=== PATIENT | male | born 1980 | race Caucasian/White ===

== ENCOUNTER 2020-07-20 20:34 | Emergency (ER) | payer OTHER ==
[~2020-07-20] VITALS: Ht 180.3 cm; Wt 100.0 kg
[2020-07-20 20:58] VITALS: BP 112/71
--- NOTE | 2020-07-20 21:14 | RAD ---
3 views of the right foot dated 07/20/2020. No comparison available. Clinical data indication: Pain after injury. FINDINGS: 3 views the right foot show a transverse fracture at the base of the fifth metatarsal, not significan tly displaced. Osseous structures are otherwise intact. No malalignment. IMPRESSION: Transverse fracture at the base of the fifth metatarsal, not significantly displaced. Electronically signed by: Seb Marquez MD (07/20/2020 9:11 PM) NILSA
--- NOTE | 2020-07-20 21:20 | PHYS DOC ---
Past History Past Medical History: No Pertinent History Past Surgical History: Other Additional Past Surgical Histo: ORAL, SALIVA GLAND SX, LEFT FINGER SX, RIGHT SHOULDER Alcohol Use: None Adult General Chief Complaint Chief Complaint: FOOT INJURY PAIN HPI HPI Patient is an otherwise healthy 39-year-old male who presents with a chief complaint of right foot pain. States he was at the [employer] [place] just before coming to the emergency department, and twisted his foot/ankle. States he is got pain 7 out of 10. States he can walk but it causes him pain. Denies any other injuries. Review of Systems Review of Systems Review of systems otherwise unremarkable except noted in HPI peer Current Medications Current Medications Current Medications Medications (Trade) Dose Ordered Sig/Zeny Start Time Stop Time Status Last Admin Dose Admin Acetaminophen (Tylenol) 1,000 mg 1X ONCE 07/20/20 21:30 07/20/20 21:31 UNV Ibuprofen (Motrin) 600 mg 1X ONCE 07/20/20 21:30 07/20/20 21:31 UNV Allergies Allergies Allergies Coded Allergies Type Severity Reaction Last Updated Verified No Known Drug Allergies 07/20/20 No Physical Exam Physical Exam Constitutional: Well developed, well nourished, no acute distress, non-toxic appearance. [] Skin: Warm, dry, no erythema, no rash. [] Back: No tenderness, Extremities: Neurovascular exam intact, tenderness to palpation, swelling and mild contusion at lateral right foot approximately at the base of fifth metatarsal Neurologic: Alert and oriented X 3, normal motor function, normal sensory function, no focal deficits noted. [] Psychologic: Affect normal, judgement normal, mood normal. [] Current Patient Data Vital Signs Vital Signs Date Time Temp Pulse Resp B/P (MAP) Pulse Ox O2 Delivery O2 Flow Rate FiO2 07/20/20 20:58 97.9 100 16 112/71 (85) 96 Room Air EKG EKG [] Radiology/Procedures Radiology/Procedures []FINDINGS: 3 views the right foot show a transverse fracture at the base of the fifth metatarsal, not significantly displaced. Osseous structures are otherwise intact. No malalignment. IMPRESSION: Transverse fracture at the base of the fifth metatarsal, not significantly displaced. Electronically signed by: Seb Marquez MD (07/20/2020 9:11 PM) [facility] Heart Score Risk Factors: Risk Factors: DM, Current or recent (<one month) smoker, HTN, HLP, family history of CAD, obesity. Risk Scores: Risk Factors: DM, Current or recent (<one month) smoker, HTN, HLP, family history of CAD, obesity. Course & Med Decision Making Course & Med Decision Making Patient is a 39-year-old male who presents with right foot ankle pain Vital signs not concerning. Physical exam noted above. Initially started on Tylenol, ibuprofen and ice. Imaging notable for transverse fracture at the base of the fifth metatarsal with no displacement or angulation noted. Patient placed in a short leg posterior leg splint. Given oral Percocet while in the ED. discussed patient with orthopedic surgery who agreed that the splint, pain control and nonweightbearing is appropriate. Advised to follow-up in their clinic next week for reevaluation. Discussed all findings with patient and family. Advised to call [facility] and gave contact information next week. Advised to come back with new or concerning symptoms. Family grateful, verbalized understanding and agreed with plan of discharge. [] Dragon Disclaimer Dragon Disclaimer This electronic medical record was generated, in whole or in part, using a voice recognition dictation system. Departure Departure: Impression: Primary Impression: Metatarsal bone fracture Disposition: DC HOME SELF CARE/HOMELESS Condition: IMPROVED Patient Instructions: Cast or Splint Care, Crutch Use, Metatarsal Fracture, Und isplaced Additional Instructions: Please read the attached information. Please continue to take ibuprofen and use ice at home for main pain control. Please use your prescription pain medicine as needed. Please call your primary care physician first thing Wednesday to discuss ED visit and set up a follow-up. Please call the orthopedic surgeon at [facility] at [phone] before you call your primary care physician first thing Wednesday to discuss your ED visit and set up a follow-up as soon as possible for repeat imaging, evaluation and ensure you do not need surgery. Please come back to the ED with new or concerning symptoms. Please keep your splint on, and use your crutches at all times. Scripts Oxycodone HCl/Acetaminophen (Percocet 5-325 mg Tablet) 1 Each Tablet 1 TAB PO QID PRN for fracture MDD 2 Tablet(s) for 5 Days, #20 TAB 0 Refills Prov: ROSY EVANS MD 07/20/20 ROSY EVANS MD Jul 20, 2020 21:20
--- NOTE | 2020-07-20 21:23 | RAD ---
Three-view right ankle dated 07/20/2020. COMPARISON: Foot films dated same day. Clinical data indication: Pain after injury. Findings 3 views right ankle show normal bony alignment. No displaced fracture. Talar dome is intact. There is a transverse fracture of the base of the fifth metatarsal, better described on recent foot films. IMPRESSION: 1. Base of fifth metatarsal fracture. Please see dedicated foot films dated same day for further info rmation. 2. Otherwise no acute findings. Electronically signed by: Seb Marquez MD (07/20/2020 9:21 PM) NILSA
[2020-07-20] MEDS ORDERED: ACETAMINOPHEN 500 MG TABLET PO ONE (21:30)
[2020-07-20] MEDS ORDERED: IBUPROFEN 600 MG TABLET. PO ONE (21:30)
[2020-07-20] MEDS ORDERED: oxyCODONE/APAP 5/325 1 TAB TABLET PO ONE (21:45)
[2020-07-20] MEDS ORDERED: OXYC-325 PO (21:59)
== END 2020-07-20 22:35 | disposition home or self-care (01) ==
LOC: ER 20:34
DX: S92.351A Displaced fracture of fifth metatarsal bone, right foot, initial encounter for closed fracture (principal); M79.671 Pain in right foot; R60.0 Localized edema; Z98.890 Other specified postprocedural states; X58.XXXA Exposure to other specified factors, initial encounter; Y93.89 Activity, other specified; Y92.89 Other specified places as the place of occurrence of the external cause; Y99.8 Other external cause status
CPT/HCPCS: 29515; 73610; 73630; 99284

== ENCOUNTER → 2020-08-09 | Outpatient (CLI) | payer OTHER ==
[2020-07-20 20:58] VITALS: BP 112/71
[~2020-08-09] MED LIST: OXYC-325 PO
--- NOTE | 2020-08-09 09:57 | RAD ---
EXAM: Right foot, 3 views. HISTORY: Pain. Fracture follow-up. COMPARISON: 07/20/2020 FINDINGS: 3 views of the left foot are obtained. There has been interval increase in displacement of a fracture at the base of the fifth metatarsal. There has been no interval healing. No new fracture i s seen. There is a corticated ossicle along the anterior talus. IMPRESSION: Slight increased displacement of a fracture at the base of the fifth metatarsal. There ford s been no interval healing. Electronically signed by: Traci Paris MD (08/09/2020 9:55 AM) [id number]
== END ==
LOC: RAD 09:24
PROVIDERS: ATTEND Physician Assistant
DX: S92.351A Displaced fracture of fifth metatarsal bone, right foot, initial encounter for closed fracture (principal); X58.XXXA Exposure to other specified factors, initial encounter; Y93.89 Activity, other specified; Y92.89 Other specified places as the place of occurrence of the external cause; Y99.8 Other external cause status
CPT/HCPCS: 73630

== ENCOUNTER → 2020-10-04 | Outpatient (CLI) | payer OTHER ==
--- NOTE | 2020-10-04 13:38 | RAD ---
EXAM: AP, oblique and lateral views of the right foot DATE: 10/04/2020 8:52 AM INDICATION: FX TO 5TH METATARSAL COMPARISON: 08/10/2019 07/20/2020 FINDINGS: 1. Transverse fracture through the base of the fifth metatarsal with mild sclerosis along the margin , without discrete bony bridging, and approximately 3 mm separation of the principal fragments. 2. Moderate soft tissue swelling overlying the lateral right foot. 3. Midfoot degenerative changes are seen. Electronically signed by: Gregg Duggan MD (10/04/2020 1:36 PM) [id number]
== END ==
LOC: RAD 08:47
PROVIDERS: ATTEND Physician Assistant
DX: M19.071 Primary osteoarthritis, right ankle and foot (principal); M79.89 Other specified soft tissue disorders
CPT/HCPCS: 73630

== ENCOUNTER → 2020-12-03 | Outpatient (CLI) | payer OTHER ==
--- NOTE | 2020-12-03 12:08 | RAD ---
EXAMINATION: CT LOWER RIGHT EXTREMITY WITHOUT CONTRAST, 12/03/2020 9:56 AM CLINICAL INDICATION: Follow-up foot fracture. COMPARISON: Right foot radiograph 10/04/2020, 08/09/2020, and 07/20/2020 TECHNIQUE: Helical CT imaging performed of the right without the use of intravenous contrast. Sagitta l and coronal reformats were obtained. One or more of the following individualized dose reduction techniques were utilized for this examinat ion: 1. Automated exposure control 2. Adjustment of the mA and/or kV according to patient size 3. Use of iterative reconstruction technique. FINDINGS: The nondisplaced fifth metatarsal base fracture is unchanged in alignment. Only small amoun t of bridging bone is seen across fracture. There is no bridging bone or callus across the majority f racture. Fracture margins inferiorly are sclerotic suggesting the neocortication. No other fracture o r malalignment. Soft tissues normal. IMPRESSION: Unchanged alignment of nondisplaced fifth metatarsal base fracture with only small amount of bridging bone across the fracture. Electronically signed by: Stacey Bianchi MD (12/03/2020 12:05 PM) [id number]
== END ==
LOC: CT 09:40
PROVIDERS: ATTEND Physician Assistant
DX: S92.354K Nondisplaced fracture of fifth metatarsal bone, right foot, subsequent encounter for fracture with nonunion (principal); X58.XXXD Exposure to other specified factors, subsequent encounter
CPT/HCPCS: 73700